=== PATIENT | male | born 1995 | race Caucasian/White ===

== ENCOUNTER 2018-06-17 16:36 | Emergency (ER) | payer MEDICAID ==
[~2018-06-17] VITALS: Ht 182.9 cm; Wt 73.7 kg
[2018-06-17 16:39] VITALS: BP 131/75
[2018-06-17] MEDS ORDERED: ONDANSETRON ODT 4 MG PO ONE (17:00)
[2018-06-17 17:16] LABS: ANION GAP 5 mmol/L (5-15); BASOPHILS # (AUTO) 0.06 x10^3/uL (0-0.1); BASOPHILS % (AUTO) 1 % (0-1); CALCIUM 8.5 mg/dL (8.5-10.1); CHLORIDE 109 mmol/L (98-107); CREATININE 1.25 mg/dL (0.7-1.3); EOSINOPHILS # (AUTO) 0.12 x10^3/uL (0-0.4); EOSINOPHILS % (AUTO) 2 % (1-7); LYMPHOCYTES # (AUTO) 1.85 x10^3/uL (1-3.4); LYMPHOCYTES % (AUTO) 31 % (22-44); MD NO; MEAN CORPUSCULAR HEMOGLOBIN 29.6 pg (27.5-34.5); MEAN CORPUSCULAR HGB CONC 34.3 g/dL (33.2-36.2); MEAN CORPUSCULAR VOLUME 86.5 fL (81-97); MEAN PLATELET VOLUME 7.2 fL (7.4-10.4); MONOCYTES # (AUTO) 0.44 x10^3/uL (0.2-0.8); MONOCYTES % (AUTO) 7 % (2-9); NEUTROPHILS # (AUTO) 3.51 x10^3/uL (1.8-6.8); NEUTROPHILS % (AUTO) 59 % (42-75); PLATELET COUNT 246 x10^3/uL (130-400); RED BLOOD COUNT 5.49 x10^6/uL (4.38-5.82); RED CELL DISTRIBUTION WIDTH 12.9 % (9.4-14.8)
[2018-06-17] MEDS ORDERED: ONDANSETRON ODT 4 MG ONE (17:28)
== END 2018-06-17 18:19 | disposition home or self-care (01) ==
LOC: ED 18:13
DX: R11.2 Nausea with vomiting, unspecified (principal); R10.9 Unspecified abdominal pain
CPT/HCPCS: 36415; 80048; 82040; 85025; 99284; Q0162

== ENCOUNTER 2018-07-24 03:32 | Emergency (ER) | payer MEDICAID ==
[~2018-07-24] VITALS: Ht 182.9 cm; Wt 72.2 kg
[2018-07-24 03:37] VITALS: BP 119/71
[2018-07-24] MEDS ORDERED: IBUPROFEN 200 MG TABLET ONE (04:09)
[2018-07-24] MEDS ORDERED: HYDROcodone/APAP 5/325 TABLET ONE (04:09)
[2018-07-24] MEDS ORDERED: CEFAZOLIN 1,000 MG ONE (04:09)
[2018-07-24] MEDS ORDERED: BACITRACIN ZINC OINT 500U/GM, 0.9 GM ONE (04:10)
== END 2018-07-24 04:27 | disposition home or self-care (01) ==
LOC: ED 03:49
DX: K13.79 Other lesions of oral mucosa (principal); F17.210 Nicotine dependence, cigarettes, uncomplicated
CPT/HCPCS: 99283

== ENCOUNTER 2018-08-15 21:20 | Emergency (ER) | payer MEDICAID ==
[~2018-08-15] VITALS: Ht 182.9 cm; Wt 73.6 kg
[2018-08-15 21:29] VITALS: BP 130/80
[2018-08-15] MEDS ORDERED: HYDROcodone/APAP 5/325 TABLET PO ONE (22:00)
[2018-08-15] MEDS ORDERED: LIDOCAINE-MPF 1%, 2ML ONE (22:03)
[2018-08-15] MEDS ORDERED: HYDROcodone/APAP 5/325 TABLET ONE (22:12)
== END 2018-08-15 22:40 | disposition home or self-care (01) ==
LOC: ED 22:20
DX: K08.89 Other specified disorders of teeth and supporting structures (principal); F17.210 Nicotine dependence, cigarettes, uncomplicated
CPT/HCPCS: 99283